=== PATIENT | male | born 2005 | race Two or more races ===

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

== ENCOUNTER 2025-05-15 13:00 | Emergency (ER) | payer MEDICAID, OTHER ==
[~2025-05-15] VITALS: Ht 177.8 cm; Wt 56.8 kg
[2025-05-15 13:04] VITALS: TEMP 99.1
[2025-05-15 13:16] LABS: COVID AG,FIA SOURCE NASAL SWAB
[2025-05-15 14:07] LABS: SARS-COV2 (COVID) ANTIGEN,FIA Negative (Negative)
[2025-05-15 14:08] LABS: INFLUENZA TYPE A NEGATIVE FOR TYPE A (NEGATIVE); INFLUENZA TYPE B NEGATIVE FOR TYPE B (NEGATIVE)
[2025-05-15] MEDS ORDERED: IBUP-1492 PO (14:16)
[2025-05-15] MEDS ORDERED: GUAIF600 PO (14:16)
[2025-05-15 14:25] VITALS: BP 153/88; PULSE 108; RESP 18; O2SAT 100
== END 2025-05-15 14:45 | disposition home or self-care (01) ==
LOC: EMS 13:00
DX: J06.9 Acute upper respiratory infection, unspecified (principal); J45.909 Unspecified asthma, uncomplicated; F41.9 Anxiety disorder, unspecified; R07.89 Other chest pain; Z91.030 Bee allergy status; Z20.822 Contact with and (suspected) exposure to COVID-19
CPT/HCPCS: 87430; 87804; 93005; 99284; Z7502